=== PATIENT | male | born 1985 | race Caucasian/White ===

== ENCOUNTER 2022-07-01 10:18 | Emergency (ER) | payer OTHER ==
[~2022-07-01] VITALS: Ht 177.8 cm; Wt 105.2 kg
[2022-07-01 10:21] VITALS: BP 152/63
--- NOTE | 2022-07-01 10:28 | NUR ---
PT AMB TO BED 6.
[2022-07-01] MEDS ORDERED: KETOROLAC 15 MG/ML VIAL IM ONE (11:20)
[2022-07-01] MEDS ORDERED: methocarbamoL 500 MG TAB PO ONE (11:20)
[2022-07-01] MEDS ORDERED: methylPREDNISolone SS 125 MG in WATER STERILE 2 ML IM ONE (11:20)
[2022-07-01] MEDS ORDERED: LIDOCAINE 5% 1 EA PATCH TP STA (11:31)
[2022-07-01] MEDS ORDERED: methylPREDNISolone SS 125 MG/2 ML VIAL ONE (11:33)
[2022-07-01] MEDS ORDERED: WATER STERILE 0 ML MC ONE (11:33)
[2022-07-01] MEDS ORDERED: PRED20TA5 PO (12:15)
[2022-07-01] MEDS ORDERED: LID5T TP (12:15)
[2022-07-01] MEDS ORDERED: IBUP-2213 PO (12:15)
[2022-07-01 12:29] VITALS: BP 125/66
--- NOTE | 2022-07-01 12:31 | NUR ---
PT DISCHARGED HOME, FEELS BETTER ABOUT LOWER BACK PAIN AFTER MEDS GIVEN, NOW 11/17 Patient discharged with v/s stable. Written and verbal after care instructions given and explained. Patient verbalized understanding. Ambulatory with steady gait. All questions addressed prior to discharge. Advised to follow up with PMD IN THREE DAYS.
[2022-07-02] MEDS ORDERED: LIDOCAINE 5% 1 EA PATCH TP SCH (09:00)
== END 2022-07-01 12:29 | disposition home or self-care (01) ==
LOC: MED 10:18
DX: M54.42 Lumbago with sciatica, left side (principal); Z71.6 Tobacco abuse counseling; F17.200 Nicotine dependence, unspecified, uncomplicated; Z98.890 Other specified postprocedural states; Z79.899 Other long term (current) drug therapy; Z79.1 Long term (current) use of non-steroidal anti-inflammatories (NSAID)
CPT/HCPCS: 96372; 99284; J1885; J2930

== ENCOUNTER 2022-07-10 08:30 | Emergency (ER) | payer OTHER ==
[~2022-07-10] VITALS: Ht 177.8 cm; Wt 109.8 kg
[~2022-07-10 08:30] MED LIST: IBUP-2213 PO; LID5T TP; PRED20TA5 PO
[2022-07-10 08:31] VITALS: BP 143/88
--- NOTE | 2022-07-10 08:38 | NUR ---
PT AMB TO BED 12.
[2022-07-10] MEDS ORDERED: KETOROLAC 60 MG/2 ML VIAL IM ONE (08:50)
--- NOTE | 2022-07-10 08:56 | NUR ---
37 Y/O MALE BIB SELF C/O 07/17 LEFT CALF PAIN AND LEFT NUMBNESS X "MORE THAN 1 MONTH". DENIES TRAUMA/INJURY. SEEN HERE 2 WEEKS AGO SAME S/S. TOOK IBURPOFEN WITH MINIMAL RELIEF PMH: ASTHMA, BACK SURGERY IN 2018
[2022-07-10] MEDS ORDERED: ACET-8386 PO (09:47)
[2022-07-10] MEDS ORDERED: IBUP-2213 PO (09:47)
[2022-07-10 09:59] VITALS: BP 143/88
--- NOTE | 2022-07-10 10:00 | NUR ---
Patient discharged with v/s stable. Written and verbal after care instructions ABOUT MUSCULOSKELETAL PAIN, CHRONIC BACK PAIN given and explained. Patient alert, oriented and verbalized understanding of instructions. Ambulatory with steady gait. All questions addressed prior to discharge. ID band removed. Patient advised to follow up with PMD. Rx of IBUPROFEN 600MG AND NORCO 5-325 given. Patient educated on indication of medication including possible reaction and side effects. Opportunity to ask questions provided and answered. EDUCATED ON USE OF NARCOTICS, ADVISED TO NOT DRINK OR DRIVE WHILE USING, VERBALIZED UNDERSTANDING.
== END 2022-07-10 10:00 | disposition home or self-care (01) ==
LOC: MED 08:30
DX: M79.662 Pain in left lower leg (principal); Z90.49 Acquired absence of other specified parts of digestive tract; Z98.890 Other specified postprocedural states
CPT/HCPCS: 96372; 99283; J1885

== ENCOUNTER 2023-04-10 11:47 | Emergency (ER) | payer OTHER ==
[~2023-04-10] VITALS: Ht 177.8 cm; Wt 108.9 kg
[~2023-04-10 11:47] MED LIST changes: +ACET-8905 PO
[2023-04-10 11:49] VITALS: BP 149/99; PULSE 74; RESP 16; TEMP 97.9; O2SAT 97
[2023-04-10] MEDS ORDERED: KETOROLAC 60 MG/2 ML VIAL IM ONE (12:55)
[2023-04-10] MEDS ORDERED: IBUP-2213 PO (12:57)
[2023-04-10] MEDS ORDERED: ACET-8905 PO (12:57)
--- NOTE | 2023-04-10 14:00 | NUR ---
ACUTE ON CHRONIC BACK PAIN. STATES THAT HE'S BEEN WORKING A LOT.
--- NOTE | 2023-04-10 14:01 | NUR ---
Patient discharged with v/s stable. Written and verbal after care instructions given and explained. Patient alert, oriented and verbalized understanding of instructions. Ambulatory with steady gait. All questions addressed prior to discharge. ID band removed. Patient advised to follow up with PMD. Rx of NORCO, MOTRIN given. Patient educated on indication of medication including possible reaction and side effects. Opportunity to ask questions provided and answered.
[2023-04-10 14:02] VITALS: BP 135/89; PULSE 70; RESP 16; TEMP 97.9; O2SAT 97
== END 2023-04-10 13:57 | disposition home or self-care (01) ==
LOC: MED 11:47
DX: M54.42 Lumbago with sciatica, left side (principal); Z79.1 Long term (current) use of non-steroidal anti-inflammatories (NSAID); Z79.899 Other long term (current) drug therapy
CPT/HCPCS: 96372; 99283; J1885

== ENCOUNTER 2023-04-15 12:30 | Emergency (ER) | payer OTHER ==
[~2023-04-15] VITALS: Ht 177.8 cm; Wt 109.9 kg
[2023-04-15 12:51] VITALS: BP 131/75; PULSE 65; RESP 18; TEMP 97.9; O2SAT 97
--- NOTE | 2023-04-15 13:58 | NUR ---
BIB WHEELCHAIR TO ER BED 4
--- NOTE | 2023-04-15 13:59 | NUR ---
Dr. Jackson evaluating patient at bedside.
--- NOTE | 2023-04-15 13:59 | NUR ---
Patient being evaluated by physician at bedside.
--- NOTE | 2023-04-15 13:59 | NUR ---
Patient was wheelchair assisted to bed 4.
[2023-04-15] MEDS ORDERED: methocarbamoL 500 MG TAB PO STA (14:06)
[2023-04-15] MEDS ORDERED: MORPHINE SULFATE 4 MG/ML SYR IVP ONE (14:10)
[2023-04-15] MEDS ORDERED: KETOROLAC 15 MG/ML VIAL IVP ONE (14:10)
[2023-04-15] MEDS ORDERED: ACETAMINOPHEN 325 MG TAB PO ONE (14:10)
[2023-04-15] MEDS ORDERED: ONDANSETRON 4 MG/2 ML VIAL IVP ONE (14:10)
[2023-04-15] MEDS ORDERED: predniSONE 20 MG TAB PO ONE (14:10)
--- NOTE | 2023-04-15 14:45 | NUR ---
38 y/o male bib family for mid back pain that is chronic. Patient reports pain increased a month ago. Patient does have a history of back surgery in 2018. Patient has been taking Ibuprofen and Norcos for pain with little relief. Patient reports numbness down left leg d/t sciatica. All needs met by staff. Call light is within reach. Medical History: Back surgery, sciatica, irregular heart beat NKDA
--- NOTE | 2023-04-15 15:35 | NUR ---
Dr. Jackson re-evaluating patient at bedside.
[2023-04-15] MEDS ORDERED: PRED20TA5 PO (15:46)
[2023-04-15] MEDS ORDERED: LID5T TP (15:46)
[2023-04-15] MEDS ORDERED: ACET-8905 PO (15:46)
[2023-04-15] MEDS ORDERED: METH-1681 PO (15:46)
[2023-04-15] MEDS ORDERED: NAPR-54 PO (15:46)
--- NOTE | 2023-04-15 16:00 | NUR ---
The patient's care was reviewed and supervised by SARY CONDE RN.
--- NOTE | 2023-04-15 16:09 | NUR ---
IV removed, catheter intact and site benign. Applied folded 4x4 gauze and tape to stop bleeding.
[2023-04-15 16:10] VITALS: BP 119/60; PULSE 52; RESP 15; TEMP 97.9; O2SAT 98
--- NOTE | 2023-04-15 16:10 | NUR ---
Patient's pain is relieved. Patient discharged with v/s stable. Written and verbal after care instructions given. Patient alert, oriented and verbalized understanding of instructions. Ambulatory with steady gait. All questions addressed prior to discharge. ID band removed. Patient advised to follow up with PMD. Rx of Hydrocodone-Acetaminophen, Lidocaine, Robaxin, Naproxen and Prednisone given. Opportunity to ask questions provided and answered. WORK NOTE HANDED TO PATIENT.
== END 2023-04-15 16:10 | disposition home or self-care (01) ==
LOC: MED 12:30
DX: M54.17 Radiculopathy, lumbosacral region (principal); Z79.899 Other long term (current) drug therapy
CPT/HCPCS: 96374; 96375; 99284; J1885; J2270; J2405; J7512

== ENCOUNTER 2023-04-26 18:25 | Inpatient (IN) | payer OTHER ==
[~2023-04-26] VITALS: Ht 177.8 cm; Wt 108.9 kg
[~2023-04-26 18:25] MED LIST changes: +METH-1681 PO; +NAPR-54 PO
[2023-04-26 18:33] VITALS: BP 153/80; PULSE 89; RESP 20; TEMP 98.3; O2SAT 98
[2023-04-26] MEDS ORDERED: ONDANSETRON 4 MG/2 ML VIAL IVP ONE (19:00)
[2023-04-26] MEDS ORDERED: MORPHINE SULFATE 4 MG/ML SYR IVP ONE ×2 (19:00→21:50)
[2023-04-26 19:40] LABS: BASOPHILS # (AUTO) 0.1 K/uL (0.00-0.22); BASOPHILS % (AUTO) 0.6 % (0.0-2.0); EOSINOPHILS # (AUTO) 0.1 K/uL (0-0.4); HEMATOCRIT 45.9 % (36-52); HEMOGLOBIN 15.6 g/dL (12.0-18.0); LYMPHOCYTES # (AUTO) 2.4 K/uL (2.0-11.5); LYMPHOCYTES % (AUTO) 23.4 % (20.5-51.1); MEAN CORPUSCULAR HEMOGLOBIN 32 pg (27-31); MEAN CORPUSCULAR HGB CONC 34 g/dL (33-37); MONOCYTES # (AUTO) 0.7 K/uL (0.8-1.0); MONOCYTES % (AUTO) 6.7 % (1.7-9.3); NEUTROPHILS % (AUTO) 68.3 % (42.2-75.2); PLATELET COUNT (AUTO) 279 K/uL (140-450); RED BLOOD CELL COUNT(AUTO) 4.83 MIL/uL (4.20-6.10); RED CELL DISTRIBUTION WIDTH 13.4 % (11.6-13.7); WHITE BLOOD COUNT (AUTO) 10.3 K/uL (4.8-10.8)
[2023-04-26 19:53] LABS: ANION GAP 13.2 (8-16); CARBON DIOXIDE 25.8 mmol/L (21-32); CREATININE 1.2 mg/dL (0.6-1.3)
[2023-04-26] MEDS ORDERED: KETOROLAC 30 MG/ML VIAL IVP ONE (21:15)
[2023-04-26] MEDS ORDERED: methocarbamoL 500 MG TAB PO SCH (21:25)
[2023-04-26] MEDS ORDERED: LIDOCAINE 5% 1 EA PATCH TP ONE (21:50)
--- NOTE | 2023-04-26 23:00 | NUR ---
Attempted to reassess lidocaine patch, per EMAR, not due for reassessment at this time
--- NOTE | 2023-04-27 | NUR ---
BIB self c/o 10/10 left leg pain x 1 month. pmhx back surgery and gallbladder removal. denies any allergies.
[2023-04-27] MEDS ORDERED: TRAM50TA3 PO (00:17)
--- NOTE | 2023-04-27 00:18 | NUR ---
MED RECONCILE AND BELONGINGS COMPLETED
[2023-04-27] MEDS ORDERED: MORPHINE SULFATE 4 MG/ML SYR IVP ONE (00:20)
[2023-04-27] MEDS ORDERED: KETOROLAC 15 MG/ML VIAL IVP ONE (00:20)
--- NOTE | 2023-04-27 01:19 | NUR ---
Patient was assisted to restroom.
[2023-04-27] MEDS ORDERED: ONDANSETRON 4 MG/2 ML VIAL IVP PRN (01:20)
[2023-04-27] MEDS ORDERED: LORazepam 2 MG/ML VIAL IVP PRN (01:20)
[2023-04-27] MEDS ORDERED: ACETAMINOPHEN 325 MG TAB PO PRN (01:20)
[2023-04-27 02:20] VITALS: BP 132/72; PULSE 53; RESP 18; TEMP 98.3; O2SAT 98
--- NOTE | 2023-04-27 02:20 | NUR ---
Report called to Shola JACK for transfer of care
--- NOTE | 2023-04-27 02:20 | NUR ---
Admitted from , with chief complaint of SEVERE LEFT LEG PAIN radiating to lower back , 38 y/o ,Male, Cooperative,awake, alert and oriented x 4, on room air, breathing even and unlabored. no s/sx of respiratory distress.iv on left hand g 20, saline locked. skin is intact.mrsa swab done. all precautions in place. call light within reach. will continue to monitor. oriented to call light, bed, phone,television, bathroom, smoking policy, visiting hours, procedures, ID bracelet on. Belongings list checked.
[2023-04-27] MEDS: HYDROcodone/APAP 5/325 MG 1 TAB TAB PO PRN ×2 (03:00→08:54)
--- NOTE | 2023-04-27 05:34 | NUR ---
PT ASLEEP IN BED. VISIBLE CHEST RISE AND FALL NOTED. NO S/SX OF DISTRESS. ALL PRECAUTIONS IN PLACE. CALL LIGHT WITHIN REACH. WILL CONTINUE TO MONITOR.
[2023-04-27] MEDS: HYDROmorphone PFS 2 MG/ML SYR IVP PRN ×4 (06:05→23:08)
--- NOTE | 2023-04-27 07:15 | NUR ---
receive the patient from the radiotelephone technical operator tiana Jolley in rm [id number] aox4 admitting diagnosis of intractable back pain . for pain management will continue to monitor
[2023-04-27 08:00] VITALS: BP 127/71; PULSE 52; RESP 18; TEMP 97.4; O2SAT 96
--- NOTE | 2023-04-27 09:00 | NUR ---
PATIENT HAS BEEN SCREENED AND CATEGORIZED LOW NUTRITION RISK. PATIENT WILL BE SEEN WITHIN 7 DAYS OF ADMISSION. 05/04/23 REVIEWED BY MAURISIO GASPAR RD
[2023-04-27 16:00] VITALS: BP 125/76; PULSE 51; RESP 18; TEMP 97.8; O2SAT 97
--- NOTE | 2023-04-27 17:05 | NUR ---
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 Pt. was AOx4. Demographics were confirmed. Pt resides with his Fianc, [facility], . Educated pt and provided him with the DPOA packet. Pt. denied any of the issues listed above. 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 Pt. plans to return home once he is discharged.
--- NOTE | 2023-04-27 19:05 | NUR ---
will endorse to graduate student instructor rn for continuity of care . for pain mgt . negative on CT of the spine . will probably discharge tomorrow
[2023-04-27 20:00] VITALS: BP 123/71; PULSE 49; RESP 18; TEMP 96.2; O2SAT 97
--- NOTE | 2023-04-27 22:21 | NUR ---
RECEIVED PATIENT AWAKE ALERT RESTING IN BED ON ROOM AIR. NO ACUTE DISTRESS NOTED. IV ACCESS ON THE LEFT HAND SALINE LOCK. AMBULATORY. FAMILY MEMBER AT BEDSIDE. NO COMPLAINTS OF PAIN. CALL LIGHT WITHIN REACH. SAFETY MEASURES ARE IN PLACE.
[2023-04-28] MEDS: HYDROcodone/APAP 5/325 MG 1 TAB TAB PO PRN ×5 (01:30→20:23)
[2023-04-28] MEDS: HYDROmorphone PFS 2 MG/ML SYR IVP PRN ×5 (03:54→22:08)
[2023-04-28 06:00] LABS: BASOPHILS % (AUTO) 0.3 % (0.0-2.0); EOSINOPHILS # (AUTO) 0.1 K/uL (0-0.4); EOSINOPHILS % (AUTO) 2.1 % (0.0-4.0); HEMATOCRIT 42.2 % (36-52); HEMOGLOBIN 14.5 g/dL (12.0-18.0); LYMPHOCYTES # (AUTO) 2.6 K/uL (2.0-11.5); MEAN CORPUSCULAR HEMOGLOBIN 33 pg (27-31); MEAN CORPUSCULAR HGB CONC 34 g/dL (33-37); MEAN CORPUSCULAR VOLUME 94.6 fL (80-94); MONOCYTES # (AUTO) 0.5 K/uL (0.8-1.0); MONOCYTES % (AUTO) 6.8 % (1.7-9.3); NEUTROPHILS # (AUTO) 3.6 K/uL (1.8-7.7); NEUTROPHILS % (AUTO) 52.8 % (42.2-75.2); PLATELET COUNT (AUTO) 214 K/uL (140-450); RED BLOOD CELL COUNT(AUTO) 4.46 MIL/uL (4.20-6.10); RED CELL DISTRIBUTION WIDTH 12.9 % (11.6-13.7); WHITE BLOOD COUNT (AUTO) 6.9 K/uL (4.8-10.8)
--- NOTE | 2023-04-28 07:01 | NUR ---
receive the patient from the shift supervisor melting tiana hensley in rm [id number] admitting diagnosis of severe left leg pain . for pain mgt . to be transferred to another hospital for MRI
[2023-04-28 07:42] VITALS: PULSE 54; RESP 20; O2SAT 99
[2023-04-28 08:00] VITALS: BP 123/71; PULSE 56; RESP 18; TEMP 97.2; O2SAT 97
[2023-04-28 09:21] LABS: ALBUMIN 3.6 g/dL (3.4-5.0); ANION GAP 13.5 (8-16); CARBON DIOXIDE 26.4 mmol/L (21-32); CREATININE 0.9 mg/dL (0.6-1.3); POTASSIUM 3.9 mmol/L (3.5-5.1)
[2023-04-28 09:33] LABS: TOTAL BILIRUBIN 0.5 mg/dL (0.0-1.0)
[2023-04-28 16:00] VITALS: BP 128/73; PULSE 61; RESP 18; TEMP 97.4; O2SAT 97
--- NOTE | 2023-04-28 17:30 | NUR ---
receive the order from Md Ness to be transfer to another hospital for MRI
[2023-04-28] MEDS ORDERED: DOCUSATE SODIUM 100 MG GELCAP PO PRN (18:15)
--- NOTE | 2023-04-28 18:40 | NUR ---
receive an order for colace from Md Ness for constipation as per patient request
--- NOTE | 2023-04-28 19:07 | NUR ---
will endorse to weight shifter tiana Massey for continuity of care . possible transfer to another hospital for MRI spine for further evaluation
--- NOTE | 2023-04-28 19:15 | NUR ---
PATIENT LYING IN BED AWAKE APPEARS TO BE COMFORTABLE. NO S/S OF RESPIRATORY DISTRESS ON ROOM AIR. PATIENT STATED THE PAIN IN MY LEG IS ALWAYS THERE RELIEVED A LITTLE BIT WITH PAIN MEDICATIONS. CALL LIGHT WITHIN REACH. PATIENT ABLE TO AMBULATE TO THE RESTROOM WITH A WALKER. WILL CONTINUE TO MONITOR.
[2023-04-28 20:00] VITALS: PULSE 53; RESP 18; O2SAT 93
[2023-04-28] MEDS ORDERED: MORPHINE TAB ER 30 MG TABER PO SCH (21:00)
[2023-04-29] MEDS: HYDROmorphone PFS 2 MG/ML SYR IVP PRN ×5 (02:04→21:48)
[2023-04-29 04:00] VITALS: BP 123/73; PULSE 92; RESP 20; TEMP 97.1; O2SAT 99
[2023-04-29] MEDS: HYDROcodone/APAP 5/325 MG 1 TAB TAB PO PRN ×4 (04:12→20:07)
--- NOTE | 2023-04-29 07:02 | NUR ---
receive the patient from the night tiana Massey in rm 104A aox4 with admitting diagnosis of intractable lower back pain . for pain mgt . will continue to monitor
--- NOTE | 2023-04-29 07:18 | NUR ---
GAVE REPORT TO AM NURSE FOR CONTINUITY OF CARE.
[2023-04-29 07:32] VITALS: PULSE 56; RESP 20; O2SAT 99
[2023-04-29 08:00] VITALS: BP 123/71; PULSE 56; RESP 18; TEMP 97.2; O2SAT 98
--- NOTE | 2023-04-29 14:00 | NUR ---
patient went to get shower with the for comfort and care
[2023-04-29 16:00] VITALS: BP 128/73; PULSE 61; RESP 18; TEMP 97.4; O2SAT 96
--- NOTE | 2023-04-29 18:46 | NUR ---
will endorse to to coal equipment operator rn for continuity of care for transfer to [facility] for MRI for further evaluation
--- NOTE | 2023-04-29 20:07 | NUR ---
PATIENT LYING IN BED ALERT NO SOB NOTED ON ROOM AIR. COMPLAINED OF PAIN TO HIS LEFT SIDE, MEDICATED. CALL LIGHT ON EASY REACH. ABLE TO AMBULATE WITH A WALKER. SAFETY MEASURES IN PLACE.
[2023-04-29 22:14] VITALS: PULSE 67; RESP 18; O2SAT 98
[2023-04-30] MEDS: HYDROmorphone PFS 2 MG/ML SYR IVP PRN ×2 (01:55→06:17)
[2023-04-30 04:00] VITALS: BP 124/70; PULSE 55; RESP 16; TEMP 97.2; O2SAT 100
--- NOTE | 2023-04-30 06:17 | NUR ---
PATIENT COMPLAINED OF SEVERE LEFT LEG, MEDICATED WITH DILAUDID IVP. NO DISTRESS, AFEBRILE. WILL ENDORSE TO THE NEXT SHIFT NURSE FOR CONTINUITY OF CARE.
--- NOTE | 2023-04-30 07:05 | NUR ---
RECEIVED REPORT FROM DIRECTOR OF BILLING NURSE FOR CONTINUITY OF CARE. PT IS STABLE.
[2023-04-30 08:00] VITALS: BP 131/74; PULSE 52; RESP 20; TEMP 97.8; O2SAT 100
[2023-04-30] MEDS: HYDROcodone/APAP 5/325 MG 1 TAB TAB PO PRN (08:28)
[2023-04-30] MEDS ORDERED: HYDROmorphone PFS 2 MG/ML SYR IVP PRN (08:40)
[2023-04-30] MEDS ORDERED: oxyCODONE/APAP 5/325 MG 1 TAB TAB PO PRN (08:40)
[2023-04-30] MEDS: KETOROLAC 15 MG/ML VIAL IVP SCH ×3 (10:06→17:36)
[2023-04-30] MEDS: oxyCODONE/APAP 5/325 MG 1 TAB TAB PO PRN ×3 (10:09→23:12)
--- NOTE | 2023-04-30 14:46 | NUR ---
RECEIVED A CALL FROM ALEXANDER THAT PT IS SCHEDULED FOR HIS MRI TOMORROW AT 10:30 AM. SHE ALSO INFORMED ME THAT WE NEED TO GIVE THE PATIENT ATIVAN BEFORE HE IS TRANSPORTED TO HELP WITH HIS CLAUSTROPHOBIA.
--- NOTE | 2023-04-30 14:55 | NUR ---
RECEIVED ORDER FOR PATIENT TO GET MRI. TRANSPORTATION WAS ARRANGED WITH [facility] FOR A BLS WAIT AND RETURN WITH A VICE PRESIDENT SAFETY TIME AT 1000. AUTH# [id number] GIVEN BY BRYAN AT [facility] FOR TRANSPORT. APPOINTMENT IS AT 1030 AT [facility].
--- NOTE | 2023-04-30 15:44 | NUR ---
DC PLANNING A 38 YEAR OLD MALE ADMITTED IN [facility] 04/27 FOR CHRONIC LOW BACK PAIN RADIATING DOWN THE LEFT LEG OVER THE PAST MONTH ,PREVIOUS HX OF BACK SURGERY IN 2018FOR BULGING DISKS.PATIENT HAS AN APPOINTMENT WITH NEUROSURGEON, DR. KELLY DOUGHERTY IN MAY.MRI OF L-SPINE WITH AND WITHOUT CONTRAST REQUESTED.AUTH # [id number] FOR MRI AND AUTH # [id number] FOR [facility] TRANSPORT.[facility] TRANSPORT ARRANGED AND PATIENT WILL HAVE TO BE AT [facility] MRI DEPT AT 10:30AM.NESTOR [facility] NURSE WAS NOTIFIED.DC PLAN-DC HOME WHEN PATIENT CONDITION IMPROVES AND PATIENT RESPONDS TO TX.CM TO FOLLOW. Addendum: 05/02/23 at 1051 by JACINTO ARMSTRONG RECEIVED ORDER FOR PATIENT TO GET THE FOLLOWING DME'S:FWW, 3 IN 1 COMMODE, AND TRANSPORT WHEEL CHAIR. FAXED ALL PAPERWORK TO [facility] AND [place] . RECEIVE ORDER FOR PATIENT TO GET A REFERRAL FOR OUT-PATIENT PHYSICAL THERAPY IN [place]. FAXED ALL PAPERWORK TO [facility]. [facility] WILL FIND OUT-PT PHYSICAL THERAPIST AND CONTACT PATIENT WITH THAT INFORMATION PER BRYAN AT [facility]. Addendum: 05/03/23 at 1126 by JACINTO ARMSTRONG CM PATIENTS DME'S WILL BE DELIVERED HERE TO THE HOSPITAL BETWEEN THE [phone].
[2023-04-30 16:00] VITALS: BP 134/78; PULSE 54; RESP 20; TEMP 98.3; O2SAT 99
[2023-04-30] MEDS: HYDROmorphone 1 MG/ML AMP IVP PRN ×2 (17:37→21:48)
--- NOTE | 2023-04-30 19:33 | NUR ---
ENDORSED TO STRUCTURAL STEEL FITTER NURSE FOR CONTINUITY OF CARE. PT TABLE AT THIS TIME.
--- NOTE | 2023-04-30 19:40 | NUR ---
PATIENT AWAKE LYING IN BED WATCHING TV. NO SOB NOTED. NO COMPLAINTS OF PAIN AT THIS TIME. CALL LIGHT WITHIN REACH. IV ACCESS TO LEFT HAND INTACT AND PATENT. BED WHEELS LOCKED IN LOW POSITION. NEEDS ATTENDED TO.
[2023-04-30 20:00] VITALS: PULSE 68; RESP 18; O2SAT 97
[2023-05-01] MEDS: KETOROLAC 15 MG/ML VIAL IVP SCH ×5 (00:23→23:16)
[2023-05-01 04:00] VITALS: BP 124/75; PULSE 58; RESP 18; TEMP 97.1; O2SAT 99
[2023-05-01] MEDS: HYDROmorphone 1 MG/ML AMP IVP PRN ×3 (04:50→17:24)
--- NOTE | 2023-05-01 07:05 | NUR ---
RECEIVED REPORT FROM LINE STAKER NURSE FOR CONTINUITY OF CARE. PT IS STABLE.
--- NOTE | 2023-05-01 07:33 | NUR ---
GAVE REPORT TO AM NURSE FOR CONTINUITY OF CARE. PATIENT STABLE.
[2023-05-01] MEDS: oxyCODONE/APAP 5/325 MG 1 TAB TAB PO PRN ×3 (07:52→21:50)
[2023-05-01 08:00] VITALS: BP 121/77; PULSE 64; RESP 18; TEMP 97.2; O2SAT 97
[2023-05-01] MEDS ORDERED: GABAPENTIN 300 MG CAP PO SCH (09:00)
[2023-05-01] MEDS: methylPREDNISolone SS 40 MG/ML VIAL IVP SCH (09:50)
--- NOTE | 2023-05-01 12:54 | NUR ---
PT CAME BACK FROM [place]. PTS IS COMPLAINING OF SOME PAIN.
--- NOTE | 2023-05-01 15:50 | NUR ---
RECEIVED A COPY OF MRI RESULTS FROM HISTOLOGY AIDE AND MADE SURE THAT WAS AWARE OF RESULTS.
[2023-05-01 16:00] VITALS: BP 131/75; PULSE 68; RESP 16; TEMP 97.8; O2SAT 98
--- NOTE | 2023-05-01 17:01 | NUR ---
P.T. NOTES P.T. EVAL COMPLETED; REFER TO EVAL FOR DETAILS.
--- NOTE | 2023-05-01 19:48 | NUR ---
ENDORSED TO PROFESSOR OF THEATRE NURSE FOR CONTINUITY OF CARE. PT TABLE AT THIS TIME.
--- NOTE | 2023-05-01 19:48 | NUR ---
PT LEFT FOR MRI AT [facility]. Addendum: 05/01/23 at 1949 by Sara Montaño RN PT LEFT AT [id number]
--- NOTE | 2023-05-01 19:50 | NUR ---
RECEIVED PT FROM MORNING SHIFT NURSE. PT IS ON BED, AOX4, AMBULATORY WITH WALKER, ABLE TO VERBALIZE NEEDS AND ABLE TO FOLLOW COMMANDS. PT IS ON ROOM AIR AND ON CARDIAC DIET. PT HAS IV ON LEFT HAND GAUGE 20, SALINE LOCK. PT SKIN IS INTACT. PT DENIES PAIN AT THIS TIME. NO S/S OF RESPIRATORY DISTRESS NOTED. ALL SAFETY MEASURES IMPLEMENTED, BED IN LOW POSITION, BED WHEELS ON LOCK AND CALL LIGHT WITHIN REACH.
[2023-05-01 20:00] VITALS: PULSE 85; RESP 18; O2SAT 97
[2023-05-01] MEDS: NORTRIPTYLINE 25 MG CAP PO SCH (20:49)
--- NOTE | 2023-05-01 20:49 | NUR ---
SCHEDULED AND PRESCRIBED MEDICATION WAS GIVEN TO PT PER MD ORDER. ALL SAFETY MEASURES IMPLEMENTED, BED IN LOW POSITION, BED WHEELS ON LOCK AND CALL LIGHT WITHIN REACH.
--- NOTE | 2023-05-01 21:50 | NUR ---
PRN PERCOCET 2 TABS WAS GIVEN TO PT DUE TO LEFT LEG PAIN, BACK PAIN AND CALF. ALL SAFETY MEASURES IMPLEMENTED, BED IN LOW POSITION, BED WHEELS ON LOCK AND CALL LIGHT WITHIN REACH.
[2023-05-02] VITALS: BP 130/82; PULSE 85; RESP 18; TEMP 98; O2SAT 97
[2023-05-02] MEDS: HYDROmorphone 1 MG/ML AMP IVP PRN (03:07)
--- NOTE | 2023-05-02 03:07 | NUR ---
PRN DILAUDID WAS GIVEN TO PT DUE TO BREAKING THROUGH PAIN ON BACK AND LEFT LEG.ALL SAFETY MEASURES IMPLEMENTED, BED IN LOW POSITION, BED WHEELS ON LOCK AND CALL LIGHT WITHIN REACH.
[2023-05-02] MEDS: KETOROLAC 15 MG/ML VIAL IVP SCH ×3 (05:55→18:24)
--- NOTE | 2023-05-02 05:55 | NUR ---
SCHEDULED AND PRESCRIBED MEDICATION WAS GIVEN TO PT PER MD ORDER. NO S/S OF RESPIRATORY DISTRESS NOTED. ALL SAFETY MEASURES IMPLEMENTED, BED IN LOW POSITION, BED WHEELS ON LOCK AND CALL LIGHT WITHIN REACH.
--- NOTE | 2023-05-02 07:27 | NUR ---
PT IS STABLE. ENDORSED PT TO MORNING SHIFT FOR CONTINUITY OF CARE.
--- NOTE | 2023-05-02 07:27 | NUR ---
RECEIVED BEDSIDE REPORT FROM CHILD THERAPIST NURSE FOR CONTINUITY OF CARE. PT IS AWAKE, NO SIGN OF DISTRESS, CALL LIGHT WITHIN REACH.
[2023-05-02 08:00] VITALS: BP 111/63; PULSE 73; RESP 20; TEMP 96.6; O2SAT 97; O2SAT 99
[2023-05-02] MEDS: methylPREDNISolone SS 40 MG/ML VIAL IVP SCH (09:48)
[2023-05-02] MEDS: oxyCODONE/APAP 5/325 MG 1 TAB TAB PO PRN ×2 (14:15→21:28)
[2023-05-02] MEDS: PANTOPRAZOLE 40 MG TABEC PO SCH (14:15)
[2023-05-02 16:00] VITALS: BP 116/63; PULSE 78; RESP 18; TEMP 97.1; O2SAT 97
--- NOTE | 2023-05-02 19:20 | NUR ---
GAVE BEDSIDE REPORT TO CYCLE ANALYST NURSE FOR CONTINUITY OF CARE. PT IS STABLE, NO SIGN OF DISTRESS. CALL LIGHT WITHIN REACH.
[2023-05-02 20:00] VITALS: PULSE 113; RESP 17; O2SAT 98
[2023-05-02] MEDS: NORTRIPTYLINE 25 MG CAP PO SCH (20:16)
--- NOTE | 2023-05-02 21:28 | NUR ---
PRN PERCOCET WAS GIVEN TO PT DUE TO LEFT LEG PAIN AND BACK PAIN. ALL SAFETY MEASURES IMPLEMENTED, BED IN LOW POSITION, BED WHEELS ON LOCK AND CALL LIGHT WITHIN REACH.
[2023-05-03] VITALS: BP 118/84; PULSE 89; RESP 17; TEMP 97.7; O2SAT 98
--- NOTE | 2023-05-03 | NUR ---
SCHEDULED AND PRESCRIBED KETOROLAC WAS GIVEN TO PT PER MD ORDER. NO S/S OF RESPIRATORY DISTRESS NOTED. ALL SAFETY MEASURES IMPLEMENTED. BED IN LOW POSITION AND BED WHEELS ON LOCK.
[2023-05-03] MEDS: KETOROLAC 15 MG/ML VIAL IVP SCH ×3 (00:10→12:25)
--- NOTE | 2023-05-03 02:00 | NUR ---
PT IS ON SLEEP. CHEST RISE AND FALL SYMMETRICALLY NOTED. RESPIRATION IS EVEN AND UNLABORED. ALL SAFETY MEASURES IMPLEMENTED. BED IN LOW POSITION. BED WHEELS ON LOCK AND CALL LIGHT WITHIN REACH.
--- NOTE | 2023-05-03 04:00 | NUR ---
CHECKED THE PT, STILL ON SLEEP. CHEST RISE AND FALL SYMMETRICALLY NOTED. RESPIRATION IS EVEN AND UNLABORED. ALL SAFETY MEASURES IMPLEMENTED. BED IN LOW POSITION. BED WHEELS ON LOCK AND CALL LIGHT WITHIN REACH.
--- NOTE | 2023-05-03 05:16 | NUR ---
SCHEDULED KETOROLAC WAS GIVEN TO PT WITH A PAIN SCALE OF 6/10 ON LEFT LEG AND BACK. ALL SAFETY MEASURES IMPLEMENTED. BED IN LOW POSITION. BED WHEELS ON LOCK AND CALL LIGHT WITHIN REACH.
--- NOTE | 2023-05-03 07:07 | NUR ---
PT IS STABLE. ENDORSED PT TO MORNING SHIFT NURSE FOR CONTINUITY OF CARE.
--- NOTE | 2023-05-03 07:08 | NUR ---
RECEIVED BEDSIDE REPORT FROM TABLET MACHINE OPERATOR NURSE FOR CONTINUITY OF CARE. PT IS ASLEEP, AWAKEN BY NAME. NO SIGN OF DISTRESS, CALL LIGHT WITHIN REACH.
[2023-05-03 08:00] VITALS: BP 122/82; PULSE 76; RESP 18; TEMP 97.4; O2SAT 100; O2SAT 98
[2023-05-03] MEDS: PANTOPRAZOLE 40 MG TABEC PO SCH (08:42)
[2023-05-03] MEDS: methylPREDNISolone SS 40 MG/ML VIAL IVP SCH (08:42)
[2023-05-03] MEDS ORDERED: PANT40EC56 PO (09:25)
[2023-05-03] MEDS ORDERED: METH4TAB1 PO ×2 (09:25→15:45)
[2023-05-03] MEDS ORDERED: ACET-5636 PO (09:25)
[2023-05-03] MEDS ORDERED: PAM25 PO ×2 (09:25→15:45)
[2023-05-03] MEDS ORDERED: IBUP-2213 PO ×2 (09:25→15:45)
--- NOTE | 2023-05-03 12:45 | NUR ---
05/03/23 RD INITIAL ASSESSMENT COMPLETED PLEASE REFER TO NUTRITION ASSESSMENT UNDER CARE ACTIVITY FOR ESTIMATED NUTRITIONAL NEEDS. 1. CONTINUE CARDIAC DIET TOLERATED 2. RD TO FOLLOW-UP 7 DAYS, LOW RISK FABI BOURNE RD
[2023-05-03] MEDS ORDERED: ACET-512 PO (15:45)
[2023-05-03] MEDS ORDERED: PANT40EC PO (15:45)
[2023-05-03 16:00] VITALS: BP 133/79; PULSE 71; RESP 18; TEMP 97.5; O2SAT 100
[2023-05-03 16:05] VITALS: BP 133/79; PULSE 71; TEMP 97.5
--- NOTE | 2023-05-03 16:25 | NUR ---
PT WAS DISCHARGED, LEFT THE UNIT IN A WHEELCHAIR. I ACCOMPANY HIM TO THE EXIT AND ASSISTED IN HIS CAR, HIS FIANCE IS DRIVING. IV AND ID BAND ARE REMOVED.
--- NOTE | 2023-05-09 11:41 | NUR ---
CALLED DR HOMAR RICARDO LOCATED AT [address] [id number]. SPOKE WITH HAROON WHO WAS ABLE TO HELP ME SCHEDULE A HOSPITAL FOLLOW UP APPOINTMENT FOR 05/07/2023 AT 1115. WENT TO BEDSIDE TO INFORM PATIENT AND GIVE APPOINTMENT SLIP WITH THE ABOVE INFORMATION.
== END 2023-05-03 16:25 | disposition home or self-care (01) | DRG 347 ==
LOC: MED 18:25 → MMU 04-27 01:23 → MTU 04-27 01:23 → OBSVTOIN 04-27 01:23 → MTU 04-27 02:01
PROVIDERS: ADMIT Hospitalist; ATTEND Hospitalist
DX: M47.816 Spondylosis without myelopathy or radiculopathy, lumbar region (principal); M48.061 Spinal stenosis, lumbar region without neurogenic claudication; M51.26 Other intervertebral disc displacement, lumbar region; Z79.891 Long term (current) use of opiate analgesic; Z79.899 Other long term (current) drug therapy; M54.30 Sciatica, unspecified side
CPT/HCPCS: 36415; 72131; 80048; 80053; 83735; 85025; 85651; 86140; 87081; 96374; 96375; 96376; 97112; 97116; 97530; 99285; J1170; J1885; J2060; J2270; J2405; J2920